=== PATIENT | male | born 1985 | race Two or more races ===

== ENCOUNTER 2025-05-20 15:47 | Emergency (ER) | payer OTHER ==
[~2025-05-20] VITALS: Ht 162.6 cm; Wt 84.4 kg
[2025-05-20] MEDS ORDERED: 0.9 % SODIUM CHLORIDE 1,000 ML IV ONE (17:00)
[2025-05-20] MEDS ORDERED: ONDANSETRON HCL 2 MG/ML VIAL IV ONE (17:00)
[2025-05-20] MEDS ORDERED: FAMOtidine 10 MG/ML (4ML VIAL) IV ONE (17:00)
[2025-05-20] MEDS ORDERED: ONDANSETRON HCL 2 MG/ML VIAL ONE (17:01)
[2025-05-20] MEDS ORDERED: FAMOTIDINE/PF 20 MG/2 ML VIAL ONE (17:02)
[2025-05-20] MEDS ORDERED: KETOROLAC TROMETHAMINE 30 MG VIAL IV ONE (17:15)
[2025-05-20 17:44] LABS: BASO % 0.3 % (0.1-1.2); EOS # 0.03 (0.04-0.54); EOS % 0.3 % (0.7-7.0); LYMPH # 1.39 (1.18-3.74); LYMPH % 12.1 % (19.3-53.1); MEAN PLATELET VOLUME 9.50 fl (9.4-12.4); MONO # 0.86 (0.24-0.82); MONO % 7.5 % (4.7-12.5); NEUT # 9.15 (1.56-6.13); NEUT % 79.5 % (34.0-71.1); RED CELL DISTRIBUTION WIDTH 12.3 % (11.6-14.4)
[2025-05-20 18:32] LABS: INR 1.02
[2025-05-20 18:35] LABS: URINE BILIRRUBIN NEGATIVE (NEGATIVE); URINE BLOOD NEGATIVE; URINE GLUCOSE NEGATIVE (NEGATIVE); URINE LEUKOCYTE NEGATIVE; URINE NITRATE NEGATIVE; URINE PROTEIN TRACE (NEGATIVE); URINE UROBILINOGEN 1.0 E.U./dl
[2025-05-20 18:40] LABS: ALT/SGPT 30.0 U/L (12-78); AST/SGOT 19.0 U/L (15-37); BILIRUBIN TOTAL 0.62 mg/dL (0.3-1.2); BUN CREA RATIO 14.0 (7.0-25.0); CREATININE SERUM 0.79 mg/dL (0.70-1.30); GFR 109.77; GLOBULINA 3.2 G/DL (2.4-3.5); GLUCOSE FASTING 114.0 mg/dL (65-100); OSMOLALITY SERUM 285.0 MOSM/KG (275-295)
[2025-05-20 18:42] LABS: COVID-19 AG NEGATIVE (NEGATIVE)
[2025-05-20] MEDS ORDERED: KETOROLAC TROMETHAMINE 30 MG VIAL ONE (18:43)
[2025-05-20 18:57] LABS: URINE COLOR YELLOW; URINE KETONE 40 (NEGATIVE)
[2025-05-20 18:58] LABS: URINE APPEARANCE CLOUDY
[2025-05-20 18:59] LABS: URINE BACTERIA SOME; URINE CRYSTALS MANY /HPF; URINE EPITHELIAL CELLS 0-4 /HPF; URINE MUCUS NEGATIVE; URINE RBC 0-3 /HPF; URINE WBC 0-2 /hpf
[2025-05-20] MEDS ORDERED: CHLORPROMAZINE HCL 25 MG TABLET PO ONE (19:15)
[2025-05-20] MEDS ORDERED: PEPCID AC20 MG PO (19:16)
[2025-05-20] MEDS ORDERED: METOCLOPRAMIDE H5 MG PO (19:16)
== END 2025-05-20 20:55 | disposition home or self-care (01) ==
LOC: ER 15:47
PROVIDERS: General Practice
DX: R11.10 Vomiting, unspecified (principal); R06.6 Hiccough; Z20.822 Contact with and (suspected) exposure to COVID-19